=== PATIENT | female | born 1940 | race Caucasian/White ===

== ENCOUNTER → 2018-02-14 | Outpatient (CLI) | payer OTHER | LOC: CIMAGING 10:02 | PROVIDERS: ATTEND Internal Medicine | DX: T14.8XXA Other injury of unspecified body region, initial encounter (principal) | CPT/HCPCS: 73590-PO ==

== ENCOUNTER → 2018-05-21 | Outpatient (CLI) | payer OTHER | DX: R07.81 Pleurodynia (principal); S22.42XA Multiple fractures of ribs, left side, initial encounter for closed fracture; M81.0 Age-related osteoporosis without current pathological fracture | CPT/HCPCS: 71250-PO ==